=== PATIENT | female | born 1950 | race Caucasian/White ===

== ENCOUNTER 2017-08-09 07:57 | Day surgery (SDC) | payer OTHER ==
[2017-08-09] MEDS: TETRACAINE 0.5% OPTH SOL OP PRN ×2 (08:40→09:25)
[2017-08-09] MEDS: BETADINE OPTH PREP OP PRN ×2 (08:40→09:26)
[2017-08-09] MEDS: CYCLOGYL 2% OPTH OP PRN ×3 (08:41→08:51)
[2017-08-09 08:48] VITALS: BP 148/62; TEMP 98
[2017-08-09] MEDS ORDERED: ZOFRAN 4 MG/2 ML IVP ONE (08:49)
[2017-08-09] MEDS ORDERED: AK-DILATE 10% OPTH SOL OP PRN (08:49)
[2017-08-09] MEDS ORDERED: DEX-MOXI-KETOR OPTH INJ 1/0.5/0.4 MG/ML IO ONE (08:49)
[2017-08-09] MEDS ORDERED: BRIMONIDINE TARTRATE 0.2% OPTH SOL OP PRN (08:49)
[2017-08-09] MEDS ORDERED: LIDOCAINE 1% 20 ML MDV ID STA (08:49)
[2017-08-09] MEDS ORDERED: LIDOCAINE 1%/PHENYLEPHRINE 1.5% BSS (SURGERY) INTRAOCULA ONE (08:49)
[2017-08-09] MEDS ORDERED: NIRAVAM ODT (SURGERY) PO PRN (08:49)
[2017-08-09] MEDS ORDERED: BSS WITH EPINEPHRINE OP ONE (09:00)
[2017-08-09] MEDS ORDERED: VERSED ONE (09:35)
[2017-08-09] MEDS ORDERED: SUBLIMAZE ONE (09:35)
== END 2017-08-09 10:30 | disposition home or self-care (01) ==
LOC: SURG 07:57
PROVIDERS: ATTEND Ophthalmology
DX: H25.12 Age-related nuclear cataract, left eye (principal)

== ENCOUNTER 2017-08-30 07:53 | Day surgery (SDC) | payer OTHER ==
[2017-08-30] MEDS: TETRACAINE 0.5% UNIT-DOSE OP PRN ×2 (08:45→09:28)
[2017-08-30] MEDS: BETADINE OPTH PREP OP PRN ×2 (08:45→09:28)
[2017-08-30] MEDS: CYCLOGYL 2% OPTH OP PRN ×3 (08:45→08:55)
[2017-08-30] MEDS ORDERED: DEX-MOXI-KETOR OPTH INJ 1/0.5/0.4 MG/ML IO ONE (08:59)
[2017-08-30] MEDS ORDERED: LIDOCAINE 1% 20 ML MDV ID STA (08:59)
[2017-08-30] MEDS ORDERED: BRIMONIDINE TARTRATE 0.2% OPTH SOL OP PRN (08:59)
[2017-08-30] MEDS ORDERED: LIDOCAINE 1%/PHENYLEPHRINE 1.5% BSS (SURGERY) INTRAOCULA ONE (08:59)
[2017-08-30] MEDS ORDERED: ZOFRAN 4 MG/2 ML IVP ONE (08:59)
[2017-08-30] MEDS ORDERED: BSS WITH EPINEPHRINE OP ONE (08:59)
[2017-08-30] MEDS ORDERED: VERSED ONE (09:25)
[2017-08-30] MEDS ORDERED: SUBLIMAZE ONE (09:25)
[2017-08-30 14:12] VITALS: TEMP 98.6
[2017-08-30 14:13] VITALS: BP 132/56
== END 2017-08-30 10:15 | disposition home or self-care (01) ==
LOC: SURG 07:53
PROVIDERS: ATTEND Ophthalmology
DX: H25.11 Age-related nuclear cataract, right eye (principal)